=== PATIENT | male | born 1960 | race Caucasian/White ===

== ENCOUNTER 2016-11-06 14:39 | Inpatient (IN) | payer MEDICARE, MEDICAID ==
[~2016-11-06] VITALS: Ht 188 cm; Wt 78.0 kg
[~2016-11-06 14:39] MED LIST: BISM525O70 PO; CYAN500T4 PO; FOLI1TAB16 PO; IPRA14.7 IH; NAPR375T3 PO; THIA100T13 PO
[2016-11-06 15:33] LABS: BASOPHILS % (AUTO) 0.5 % (0.0-2.0); EOSINOPHILS # (AUTO) 0.1 /CMM (0.0-0.7); EOSINOPHILS % (AUTO) 1.5 % (0.0-6.0); HEMATOCRIT 45 % (39-51); HEMOGLOBIN 15.3 g/dL (13.5-17.5); LYMPHOCYTES # (AUTO) 1.4 /CMM (0.8-4.8); LYMPHOCYTES % (AUTO) 16.8 % (20.0-44.0); MEAN CORPUSCULAR HEMOGLOBIN 30 PG (26.0-33.0); MEAN CORPUSCULAR HGB CONC 34 g/dl (31.0-36.0); MEAN CORPUSCULAR VOLUME 87 fL (80-96); MONOCYTES # (AUTO) 0.5 /CMM (0.1-1.30); MONOCYTES % (AUTO) 6.1 % (2.0-12.0); NEUTROPHILS # (AUTO) 6.2 /CMM (1.8-8.9); NEUTROPHILS % (AUTO) 75.1 % (43.0-81.0); PLATELET COUNT (AUTO) 244 /CMM (150-450); RDW COEFFICIENT OF VARIATION 13.2 (11.5-15.0); RED BLOOD CELL COUNT(AUTO) 5.15 MIL/uL (4.5-6.0); WHITE BLOOD COUNT (AUTO) 8.3 K/uL (4.3-11.0)
[2016-11-06 15:47] LABS: CALCIUM, SERUM 8.7 mg/dL (8.5-10.1); CARBON DIOXIDE 26 mmol/L (21-32); CHLORIDE 101 mmol/L (98-107); CREATININE 1.1 mg/dL (0.6-1.3); GLUCOSE 115 mg/dL (74-106); POTASSIUM 4.5 mmol/L (3.5-5.1); SODIUM SERUM 136 mmol/L (136-145); UREA NITROGEN, BLOOD 17 mg/dL (7-18)
[2016-11-06 15:54] LABS: ALANINE AMINOTRANSFERASE 96 U/L (12-78); ALBUMIN 3.7 g/dL (3.4-5.0); ALCOHOL, BLOOD < 3 mg/dL (0-0); ALKALINE PHOSPHATASE 102 U/L (46-116); ASPARTATE AMINOTRANSFERASE 47 U/L (15-37); BILIRUBIN,DIRECT 0.1 mg/dL (0.0-0.2); BILIRUBIN,TOTAL 0.4 mg/dL (0.2-1.0); SALICYLATE 3.3 mg/dL (2.8-20.0); TOTAL PROTEIN, SERUM 7.4 g/dL (6.4-8.2)
[2016-11-06 15:55] LABS: ACETAMINOPHEN 0 ug/ml (10-30)
--- NOTE | 2016-11-06 16:29 | NUR ---
CALLED ART VACUUM CLEANER MECHANIC AND HE IS ON THE WAY. ETA 1 HOUR
[2016-11-06] MEDS ORDERED: KETOROLAC TROMETHAMINE INJ 60 MG/2 ML VIAL IM ONE ×2 (16:30→16:50)
[2016-11-06 17:33] LABS: APPEARANCE,URINE SL CLOUDY (CLEAR); BILIRUBIN,URINE NEGATIVE (NEGATIVE); BLOOD, URINE TRACE-INTA Ery/uL (NEGATIVE); COLOR,URINE YELLOW (YELLOW); KETONES,URINE NEGATIVE (NEGATIVE); LEUKOCYTE ESTERASE ,URINE NEGATIVE (NEGATIVE); NITRITE, URINE NEGATIVE (NEGATIVE); PROTEIN,URINE NEGATIVE (NEGATIVE); UGLUCOSE NEGATIVE (NEGATIVE); UROBILINOGEN,URINE 0.2 EU/dL (0.2)
[2016-11-06 17:48] LABS: BACTERIA,URINE None seen /HPF (None Seen); RBC,URINE 0-2 /HPF (0-2); SQUAMOUS EPITHELIAL CELL,UR None Seen /HPF (None Seen); WBC,URINE 0-2 /HPF (0-3)
--- NOTE | 2016-11-06 18:52 | NUR ---
REPORT GIVEN TO SAUD SALDAÑA FOR CONTINUITY OF CARE
[2016-11-06] MEDS ORDERED: MAGNESIUM HYDROXIDE 30 ML UDC PO PRN (20:00)
[2016-11-06] MEDS ORDERED: MAG HYDROX/AL HYDROX/SIMETH 30 ML UDC PO PRN (20:00)
[2016-11-06] MEDS ORDERED: LORAZEPAM 0.5 MG TABLET PO PRN (20:00)
[2016-11-06] MEDS ORDERED: ACETAMINOPHEN 325 MG TABLET PO PRN (20:00)
--- NOTE | 2016-11-06 20:00 | NUR ---
GPS RN ADMITTING NOTES: ADMITTED A 56YO MALE FROM [facility] ON 5150 HOLD FOR DTS. PER HOLD THE PATIENT IS ANXIOUS , DEPRESSED AND SUICIDAL WITH A PLAN TO RUN IN FRONT OF A TRUCK, PATIENT STATED THAT HIS PARENTS 2 YEARS AGO AND NOW HE WANTS TO END HIS LIFE. UPON FACE TO FACE ASSESSMENT, PATIENT IS ALERT AND ORIENTED X4, ABLE TO STATE THE REASON FOR BEING ADMITTED IN THE PSYCH UNIT. PATIENT APPEARS UNKEMPT,IN UNTIDY CLOTHING, SEXUALLY INAPPROPRIATE AT TIMES. AT THE DINING ROOM,PATIENT SIGNED ADMISSION PAPERS, WHILE HE WAS SIGNING THE PAPERS, HE MADE A COMMENT TO THE DRY CLEANER APPRENTICE, "WHEN ARE WE GETTING ?" DRY CLEANER APPRENTICE THEN STOPPED THE PATIENT WITH HIS COMMENTS, SET LIMITS AND REDIRECTED THE PATIENT BACK TO THE ROOM. AT THE PATIENT'S ROOM, HE WAS MADE TO STRIP OFF HIS CLOTHES AND DID SKIN AND BODY ASSESSMENT, WITH THE ASSISTANCE OF DONNIE BIRCH.PATIENT HAS NO OPEN WOUNDS, CUTS OR BRUISES THIS TIME OF CHECK. PICTURE ON THE LEFT ANKLE WITH THE GPS BRACELET TAKEN AND PLACED IN THE CHARD. CHARGING OF THE GPS ANKLE BRACELET DONE NEAR THE NURSES STATION WHERE THE PATIENT WAS IN CLOSE EYE SUPERVISION. PATIENT THEN ALLOWED TO HAVE SHOWER AND PUT ON A CLEAN GOWN. BELONGINGS AND CONTRABAND WERE CHECKED BY DAY SHIFT MOTORCYCLE SALES ASSOCIATE'S. Q15 MIN CHECKS INITIATED. ORIENTATION TO UNIT AND STAFF DONE. CARE PLAN SPECIFIC FOR PATIENT INITIATED. PER REPORT, PATIENT IS A REGISTERED SEX OFFENDER. PATIENT'S HEALTH CARE TECHNICIAN IS Shelby LONGORIA OFFICE NUMBER [phone] HERNANDES INFORMED OF THE PATIENTS ADMISSION. PATIENT HAS NO MEDICATIONS FOR RECONCILIATION ON FILE. WILL MONITOR PATIENT FOR MOOD, SAFETY AND BEHAVIOR. WILL ENDORSE PATIENT TO DAY SHIFT NURSE.
[2016-11-06 20:16] VITALS: BP 99/62
--- NOTE | 2016-11-06 21:05 | NUR ---
GPS RN: FEMALE PATIENT REPORTED THAT THIS SAID PATIENT IS ASKING HER " CAN YOU GIVE ME A KISS?, CAN YOU GIVE ME A KISS?" PATIENT THEN REDIRECTED BY FURNITURE SHAMPOOER BACK TO HIS ROOM. PATIENT ON CLOSE MONITORING BY RN AND FURNITURE SHAMPOOER ON DUTY.
[2016-11-07 07:03] LABS: CREATININE 0.8 mg/dL (0.6-1.3)
[2016-11-07 08:00] VITALS: BP 129/65
[2016-11-07] MEDS: DULOXETINE HCL 30 MG CAPSULE.DR PO SCH (13:30)
[2016-11-07 16:00] VITALS: BP 117/66
--- NOTE | 2016-11-07 16:13 | NUR ---
RN-CO: Patient is following female staff, starring at their back, going from room to rooms asking "when are we getting ?" Calling charge nurse "Nilda." Another patient reported that he asked her if he can kissed her. 1:[address] Pink.
--- NOTE | 2016-11-07 19:20 | NUR ---
GPS/RN NOTE: PATIENT AMBULATING WITH HIS 1:1 SITTER. PATIENT GREETED HIS RN NEAR N. STATION, " HOW ARE YOU?". AND ANOTHER TIME AT THE DINING AREA, " HOW ARE YOU?" RN RESPONDED.
[2016-11-07 19:44] VITALS: BP 123/77
[2016-11-08] MEDS: TEMAZEPAM 7.5 MG CAPSULE PO PRN ×2 (00:37→22:00)
--- NOTE | 2016-11-08 00:37 | NUR ---
GPS/RN NOTE: PATIENT C/O INSOMNIA, TEMAZEPAM 7.5 MG CAP 1 PO GIVEN.
[2016-11-08 08:00] VITALS: BP 119/75
[2016-11-08] MEDS: DULOXETINE HCL 30 MG CAPSULE.DR PO SCH (08:22)
--- NOTE | 2016-11-08 13:33 | NUR ---
Per patient, he resides in a house with a friend Ron Romero. [facility] [address]. . Patient does not plan to continue living at the current address. Patient will need placement. trail construction worker attempted to contact patient's friend Nain Guerrero ([phone]) However, someone answered and stated that it was the wrong number. trail construction worker will help form a safe and proper discharge. trail construction worker will provide patient with referrals for substance abuse and referrals for smoking cessation upon discharge.
[2016-11-08 16:00] VITALS: BP 101/58
[2016-11-08 19:52] VITALS: BP 112/66
[2016-11-08] MEDS: QUETIAPINE FUMARATE 100 MG TABLET PO SCH (21:05)
[2016-11-09 08:00] VITALS: BP 104/66
[2016-11-09] MEDS: NICOTINE PATCH (21MG) 21 MG PATCH.TD24 TD SCH (08:37)
[2016-11-09] MEDS: DULOXETINE HCL 30 MG CAPSULE.DR PO SCH (08:37)
--- NOTE | 2016-11-09 09:15 | NUR ---
pipe production worker faxed initial review packet to [facility] (phone: [phone]/ ) [address] [place] [place] [address]. pipe production worker will follow-up.
--- NOTE | 2016-11-09 12:41 | NUR ---
hand bindery assembly worker faxed initial review packet to [facility] (phone: [phone]/ ) [address] [facility] [address]. hand bindery assembly worker will follow-up.
[2016-11-09 16:00] VITALS: BP 102/61
[2016-11-09 20:00] VITALS: BP 112/69
[2016-11-09] MEDS: QUETIAPINE FUMARATE 100 MG TABLET PO SCH (21:24)
[2016-11-09] MEDS: TEMAZEPAM 7.5 MG CAPSULE PO PRN (22:33)
[2016-11-10 08:00] VITALS: BP 102/65
[2016-11-10 08:50] VITALS: BP 102/65
[2016-11-10] MEDS: DULOXETINE HCL 30 MG CAPSULE.DR PO SCH (08:57)
[2016-11-10] MEDS: NICOTINE PATCH (21MG) 21 MG PATCH.TD24 TD SCH (08:57)
[2016-11-10 15:43] VITALS: BP 112/77
--- NOTE | 2016-11-10 15:43 | NUR ---
fish house worker spoke to Nelly from admissions at [facility] (phone: [phone]/ ) [address] [facility] [address], who stated that they could not accept the patient at this time as they have no bed availability.
[2016-11-10 20:00] VITALS: BP 116/69
[2016-11-10] MEDS: QUETIAPINE FUMARATE 100 MG TABLET PO SCH (21:11)
[2016-11-10] MEDS: TEMAZEPAM 7.5 MG CAPSULE PO PRN (22:09)
[2016-11-11 08:22] VITALS: BP 100/60
[2016-11-11] MEDS: DULOXETINE HCL 30 MG CAPSULE.DR PO SCH (09:09)
[2016-11-11] MEDS: NICOTINE PATCH (21MG) 21 MG PATCH.TD24 TD SCH (09:11)
[2016-11-11 16:08] VITALS: BP 149/67
[2016-11-11 20:00] VITALS: BP 111/67
[2016-11-11] MEDS: QUETIAPINE FUMARATE 100 MG TABLET PO SCH (22:51)
[2016-11-12 08:03] LABS: ALBUMIN 3.9 g/dL (3.4-5.0); BILIRUBIN,DIRECT 0.1 mg/dL (0.0-0.2); BILIRUBIN,TOTAL 0.7 mg/dL (0.2-1.0); TOTAL PROTEIN, SERUM 7.9 g/dL (6.4-8.2)
[2016-11-12 08:05] VITALS: BP 99/69
[2016-11-12] MEDS: DULOXETINE HCL 30 MG CAPSULE.DR PO SCH (08:35)
[2016-11-12] MEDS: NICOTINE PATCH (21MG) 21 MG PATCH.TD24 TD SCH (08:35)
[2016-11-12 16:03] VITALS: BP 99/68
[2016-11-12] MEDS ORDERED: HYDROCODONE/APAP 5/325MG 1 EACH TABLET ONE (19:25)
--- NOTE | 2016-11-12 19:30 | NUR ---
GPS RN NOTE, RECEIVED PATIENT AWAKE AND IN BED, PATIENT HAS A COMPLAINT OF LOWER BACK PAIN AT 6 OUT 10 ON THE PAIN SCALE. PATIENT IS BEING TREATED WITH ORAL PAIN MEDICATION FOR THIS PAIN. PATIENT HAS A ONE TO ONE SITTER FOR BEING SEXUALLY INAPPROPRIATE. PATIENT BREATHING IS UNLABORED WITH EQUAL RISE AND FALL OF THE CHEST. PATIENT IS ALERT AND ORIENTED X 3 ON ROOM AIR WITH A SPO2 98%. PATIENT COMPLAINT WITH MEDICATION, ANXIOUS, COOPERATIVE, CONFUSED AT TIMES, AND NEEDS REORIENTATION. PATIENT DENIES SUICIDE AND HOMICIDAL IDEATIONS AT THIS TIME. PATIENT ASSISTED WITH TURNING AND REPOSITIONING Q2HR AND PRN FOR COMFORT AND CIRCULATION. PATIENT HAS NO NEEDS AT THIS TIME. PATIENT EDUCATED ON THE USE OF THE CALL PADGETT. PATIENT BED SIDE RAILS UP X2 FOR SAFETY, BED IS LOCKED AND LOW WILL CONTINUE TO MONITOR AND MAINTAIN SAFETY.
[2016-11-12] MEDS: HYDROCODONE/APAP 5/325MG 1 EACH TABLET PO PRN (19:32)
--- NOTE | 2016-11-12 19:32 | NUR ---
GPS RN NOTE, PATIENT HAS A COMPLAINT OF LOWER BACK PAIN AT 7 OUT 10 PAIN ON THE PAIN SCALE AND WOULD LIKE MEDICATION AT THIS TIME. PAGED [facility] AND INFORMED DR BYRON POTTER OF MY FINDINGS. DR POTTER ORDERED TO GIVE NORCO 5-325 1 TAB PO Q4HR PRN. ALL ORDERS NOTED AND CARRIED OUT. PATIENT VITAL SIGNS ARE STABLE. GAVE NORCO 5-325 1 TAB PO Q4HR PRN ORDERED. WILL REASSESS PAIN AND I WILL CONTINUE TO MONITOR THIS PATIENT.
[2016-11-12 20:00] VITALS: BP 128/76
[2016-11-12] MEDS: QUETIAPINE FUMARATE 100 MG TABLET PO SCH (21:40)
[2016-11-13 08:00] VITALS: BP 104/63
[2016-11-13] MEDS: DULOXETINE HCL 30 MG CAPSULE.DR PO SCH (08:49)
[2016-11-13] MEDS: NICOTINE PATCH (21MG) 21 MG PATCH.TD24 TD SCH (08:49)
[2016-11-13] MEDS: HYDROCODONE/APAP 5/325MG 1 EACH TABLET PO PRN ×2 (11:51→18:15)
--- NOTE | 2016-11-13 11:51 | NUR ---
ADMINISTERED NARCO 5/325 MG PO PRN FOR CHRONIC LOWER BACK PAIN 02/20, PER PATIENT REQUEST. V/S TAKEN BP -110/69, P-65, CONTINUED MONITORING, ENCOURAGED TO INCREASE FLUID INTAKE.
--- NOTE | 2016-11-13 15:57 | NUR ---
Patient's customer service security officer Shelby Perez [facility] ([phone] ext. 1600/ ) came to see the patient today at 10:30am. stock worker and deliverer was able to speak to the officer regarding placement, the officer stated that patient has a place to live [address] [place] [address]. assault amphibious vehicle officer Chris gave public health social worker the contact number for the manger of the house Jarod Gonzalez ([phone]) and stated that more than likely patient can return to the aforementioned address. assault amphibious vehicle officer Chris requested to be contacted when patient is discharged. stock worker and deliverer attempted to contact Jarod Gonzalez ([phone]) to confirm if patient can return to the aforementioned address. However, he was unavailable, public health social worker left him a message with her contact information and will attempt again later.
[2016-11-13 16:00] VITALS: BP 129/84
--- NOTE | 2016-11-13 16:06 | NUR ---
tnt powder worker spoke to Moustapha from [facility] [address] [place] [address] ([phone]) and [facility] [address] [place] [address] ([phone]) who stated that they would not accept the patient due to his criminal record and the fact that he has an ankle monitor.
--- NOTE | 2016-11-13 18:15 | NUR ---
ADMINISTERED NARCO 5/325 MG PO PRN FOR LOWER BACK PAIN 01/21, PER PATIENT REQUEST. V/S TAKEN BP-129//84, P-100, CONTINUED MONITORING.
[2016-11-13 19:30] VITALS: BP 115/73
[2016-11-13 21:00] VITALS: BP 120/73
[2016-11-13] MEDS: QUETIAPINE FUMARATE 100 MG TABLET PO SCH (21:39)
--- NOTE | 2016-11-14 06:35 | NUR ---
RN GPS NOTES PT. , DENIES SI HI AT THIS TIME NO ACUTE DISTRESS NOTED, ATTENDED ALL NEEDS ANTICIPATED ENDORSE TO NEXT SHIFT FOR CONTINUITY OF CARE .
--- NOTE | 2016-11-14 07:45 | NUR ---
RN-CO: Patient c/o back pain 11/20, [place] given.
[2016-11-14] MEDS: DULOXETINE HCL 30 MG CAPSULE.DR PO SCH (07:46)
[2016-11-14] MEDS: HYDROCODONE/APAP 5/325MG 1 EACH TABLET PO PRN ×4 (07:46→21:53)
[2016-11-14] MEDS: NICOTINE PATCH (21MG) 21 MG PATCH.TD24 TD SCH (07:46)
[2016-11-14 08:00] VITALS: BP 104/67
--- NOTE | 2016-11-14 12:21 | NUR ---
RN-CO: Patient asked for [place] for back pain 12/21.
[2016-11-14 16:00] VITALS: BP 115/62
--- NOTE | 2016-11-14 16:45 | NUR ---
ADMINISTERED NARCO 5/325 MG PO PRN FOR LOWER BACK PAIN 11/20, PER PATIENT REQUEST, V/S TAKEN BP-115,71, P-69, CONTINUED MONITORING, ENCOURAGED TO INCREASE FLUID INTAKE.
[2016-11-14] MEDS: LIDOCAINE 5% (PATCH) 1 EA PATCH TP SCH (19:03)
--- NOTE | 2016-11-14 19:15 | NUR ---
GPS/RN NOTE: PATIENT FOUND SITTING AT THE DINING AREA WITH OTHER PATIENTS. NO ACUTE DSITRESS NOTED.
[2016-11-14 20:44] VITALS: BP 109/63
[2016-11-14] MEDS: QUETIAPINE FUMARATE 100 MG TABLET PO SCH (21:10)
--- NOTE | 2016-11-14 22:03 | NUR ---
GPS/RN NOTE: C/O BACK PAIN NORCO TAB PO 5/325 MG GIVEN.
[2016-11-15 06:48] LABS: BASOPHILS % (AUTO) 0.4 % (0.0-2.0); EOSINOPHILS # (AUTO) 0.2 /CMM (0.0-0.7); EOSINOPHILS % (AUTO) 2.8 % (0.0-6.0); HEMATOCRIT 44 % (39-51); HEMOGLOBIN 14.6 g/dL (13.5-17.5); LYMPHOCYTES # (AUTO) 1.8 /CMM (0.8-4.8); LYMPHOCYTES % (AUTO) 29.2 % (20.0-44.0); MEAN CORPUSCULAR HEMOGLOBIN 30 PG (26.0-33.0); MEAN CORPUSCULAR HGB CONC 34 g/dl (31.0-36.0); MEAN CORPUSCULAR VOLUME 89 fL (80-96); MONOCYTES # (AUTO) 0.6 /CMM (0.1-1.30); NEUTROPHILS # (AUTO) 3.7 /CMM (1.8-8.9); NEUTROPHILS % (AUTO) 58.6 % (43.0-81.0); PLATELET COUNT (AUTO) 176 /CMM (150-450); RDW COEFFICIENT OF VARIATION 13.3 (11.5-15.0); RED BLOOD CELL COUNT(AUTO) 4.91 MIL/uL (4.5-6.0); WHITE BLOOD COUNT (AUTO) 6.3 K/uL (4.3-11.0)
[2016-11-15 06:57] LABS: ALBUMIN 3.4 g/dL (3.4-5.0); BILIRUBIN,DIRECT 0.1 mg/dL (0.0-0.2); BILIRUBIN,TOTAL 0.5 mg/dL (0.2-1.0); CALCIUM, SERUM 8.6 mg/dL (8.5-10.1); CREATININE 0.7 mg/dL (0.6-1.3); POTASSIUM 4.2 mmol/L (3.5-5.1); TOTAL PROTEIN, SERUM 6.8 g/dL (6.4-8.2)
[2016-11-15 08:00] VITALS: BP 122/73
[2016-11-15] MEDS: NICOTINE PATCH (21MG) 21 MG PATCH.TD24 TD SCH (09:13)
[2016-11-15] MEDS: HYDROCODONE/APAP 5/325MG 1 EACH TABLET PO PRN ×3 (09:13→22:08)
[2016-11-15] MEDS: DULOXETINE HCL 30 MG CAPSULE.DR PO SCH (09:13)
--- NOTE | 2016-11-15 09:13 | NUR ---
RN NOTES PATIENT STATED "I HAVE BODY PAIN". NORCO 1 TAB GIVEN ORDERED PS=02/20. WILL CONTINUE TO MONITOR FOR PAIN.
--- NOTE | 2016-11-15 15:09 | NUR ---
cotton farmworker attempted to contact patient's chief mechanical officer Leo Perez from the [facility] ([phone] ext. 1600/ ) to discuss patient's placement. However, he was unavailable, social media senior associate left him a message with her contact information. cotton farmworker will follow-up.
--- NOTE | 2016-11-15 15:42 | NUR ---
Per combatant diver officer Leo Perez ([phone] ext. 1600/ ) patient is to be discharged to the Sober living located at [address] [place] [address]. Per combatant diver officer Leo Perez patient can be sent via taxi to the aforementioned address and he would follow-up with patient at the sober living facility.
[2016-11-15 16:00] VITALS: BP 113/71
[2016-11-15] MEDS: LIDOCAINE 5% (PATCH) 1 EA PATCH TP SCH (17:42)
[2016-11-15 20:03] VITALS: BP 138/77
[2016-11-15] MEDS ORDERED: QUETIAPINE FUMARATE 100 MG TABLET PO SCH (22:00)
--- NOTE | 2016-11-15 22:10 | NUR ---
RN NOTES PATIENT STATED "I HAVE MODE PAIN". NORCO 5/325 1 TAB PO PRN GIVEN ORDERED PS=12/21. WILL CONTINUE TO MONITOR FOR PAIN.
--- NOTE | 2016-11-16 06:46 | NUR ---
RN GPS NOTES PT. , DENIES SI HI AT THIS TIME NO ACUTE DISTRESS NOTED, ATTENDED ALL NEEDS ANTICIPATED ,, REMAINED 1:1 SITTER AT BED SIDE FOR SAFETY, ENDORSE TO NEXT SHIFT FOR CONTINUITY OF CARE .
[2016-11-16 08:11] VITALS: BP 129/70
[2016-11-16] MEDS: NICOTINE PATCH (21MG) 21 MG PATCH.TD24 TD SCH (08:28)
[2016-11-16] MEDS: DULOXETINE HCL 30 MG CAPSULE.DR PO SCH (08:28)
[2016-11-16] MEDS: HYDROCODONE/APAP 5/325MG 1 EACH TABLET PO PRN (08:31)
--- NOTE | 2016-11-16 13:05 | NUR ---
GPS RN: PATIENT'S HOLD DISCONTINUED AND PATIENT DISCHARGED TO [facility] [place] [address] [address] [facility] [address], [[phone]] VIA TAXI. PER , PATIENT'S DENTAL NURSE Shelby LONGORIA [[phone]] HAS BEEN NOTIFIED. PATIENT'S CONDITION IS STABLE FOR DISCHARGE, VS STABLE, PATIENT DENIES SI AT THE TIME OF DISCHARGE. ALL BELONGINGS RETURNED TO THE PATIENT. PATIENT REFUSED TO SIGN THE PAPERWORK AND DISCHARGE PHOTOS. PATIENT PROVIDED WITH EDUCATIONAL EXIT CARE AND PRESCRIPTION. PATIENT PROVIDED WITH THE TAXI VOUCHER, LEFT THE UNIT ACCOMPANIED BY STAFF.
--- NOTE | 2016-11-16 14:15 | NUR ---
Discharge Note: Patient was discharged to a Sober Living Facility located at [address] [place] [address]. Via Taxi. Patients building drafting officer Leo Perez ([phone] ext. 1600/ ) was notified. Patient and patient's building drafting officer were agreeable with the discharge plan. Patient's mood and affect were calm and cooperative upon discharge. Patient denied suicidal and homicidal ideations. Patient was provided with a referral to the [facility] [address], [place] [address] ([phone]). Patient was also provided with a referral to the [facility] program for substance abuse [address] [place] [address] ([phone]) there intake assessments are done Sunday through Sunday at 8:00am. Patient also received a referral for smoking cessation to [address] [facility] [address] meetings are held Sunday 6:30Pm small room. Facilitated info to IDT team who are in agreement with discharge arrangement. The multidisciplinary exitcare form was done, printed, signed, and given to the patient.
== END 2016-11-16 13:05 | disposition home or self-care (01) | DRG 885 ==
LOC: ER 14:43 → GPS 18:43
PROVIDERS: ADMIT Psychiatry & Neurology Psychiatry; ATTEND Internal Medicine
DX: F33.3 Major depressive disorder, recurrent, severe with psychotic symptoms (principal); R45.851 Suicidal ideations; E11.9 Type 2 diabetes mellitus without complications; G89.29 Other chronic pain; M19.90 Unspecified osteoarthritis, unspecified site; Z92.21 Personal history of antineoplastic chemotherapy; Z85.72 Personal history of non-Hodgkin lymphomas; R74.0 Nonspecific elevation of levels of transaminase and lactic acid dehydrogenase [LDH]; F29 Unspecified psychosis not due to a substance or known physiological condition; Z59.0 Homelessness; F10.10 Alcohol abuse, uncomplicated
CPT/HCPCS: 36415; 80048-TC; 80061-TC; 80076-TC; 80305; 81000-TC; 82565-TC; 85025-TC; 87081-TC; G0480; J1885

== ENCOUNTER 2019-09-10 17:17 | Inpatient (IN) | payer MEDICARE, OTHER ==
[~2019-09-10] VITALS: Ht 177.8 cm; Wt 74.8 kg
--- NOTE | 2019-09-10 17:40 | NUR ---
MIGUEL ON 5150 HOLD FROM HOME. TO ER BED 11. AAOX4. NOT IN RESP DISTRESS. AMBULATORY. BROUGHT IN FOR SUICIDAL IDEATION W/ PLAN JUMP INFRONT OF A MOVING TRUCK. PT DENIES HI. DENIES AUDITORY AND VISUAL HALLUCINATION. PT IS STRIPPED OFF CLOTHING, GOWNED AND BELONGINGS PLACED IN LOCKER LOCATED IN THE UTILITY ROOM. 1:1 SITTER AT BEDSIDE. KELLY BLOOD AT BEDSIDE FOR EVAL. WILL CONTINUE TO MONITOR PT.
[2019-09-10 17:46] LABS: APPEARANCE,URINE Clear (CLEAR); BILIRUBIN,URINE Negative (NEGATIVE); BLOOD, URINE Negative Ery/uL (NEGATIVE); COLOR,URINE Yellow (YELLOW); KETONES,URINE Negative (NEGATIVE); LEUKOCYTE ESTERASE ,URINE Negative (NEGATIVE); NITRITE, URINE Negative (NEGATIVE); PH,URINE 5.5 (5.0-8.0); PROTEIN,URINE Negative (NEGATIVE); UGLUCOSE Negative (NEGATIVE); UROBILINOGEN,URINE 0.2 EU/dL (0.2)
[2019-09-10 17:47] LABS: BASOPHILS % (AUTO) 0.5 % (0.0-2.0); EOSINOPHILS % (AUTO) 1.2 % (0.0-6.0); HEMATOCRIT 43 % (39-51); HEMOGLOBIN 14.2 g/dL (13.5-17.5); LYMPHOCYTES # (AUTO) 1.2 /CMM (0.8-4.8); LYMPHOCYTES % (AUTO) 15.3 % (20.0-44.0); MEAN CORPUSCULAR HGB CONC 33 g/dl (31.0-36.0); MEAN CORPUSCULAR VOLUME 86 fL (80-96); MONOCYTES # (AUTO) 0.7 /CMM (0.1-1.30); MONOCYTES % (AUTO) 9.2 % (2.0-12.0); NEUTROPHILS # (AUTO) 5.8 /CMM (1.8-8.9); NEUTROPHILS % (AUTO) 73.8 % (43.0-81.0); PLATELET COUNT (AUTO) 224 /CMM (150-450); RED BLOOD CELL COUNT(AUTO) 5.03 MIL/uL (4.5-6.0); WHITE BLOOD COUNT (AUTO) 7.9 K/uL (4.3-11.0)
--- NOTE | 2019-09-10 17:50 | NUR ---
ER PHLEB AT BEDSIDE FOR BLOOD DRAW.
[2019-09-10 17:54] LABS: CALCIUM, SERUM 8.6 mg/dL (8.5-10.1); CARBON DIOXIDE 29 mmol/L (21-32); CHLORIDE 100 mmol/L (98-107); GLUCOSE 101 mg/dL (74-106); POTASSIUM 4.1 mmol/L (3.5-5.1); SODIUM SERUM 134 mmol/L (136-145); UREA NITROGEN, BLOOD 17 mg/dL (7-18)
[2019-09-10] MEDS ORDERED: IV NS 0.9% 1,000 ML BAG IV ONE (18:00)
[2019-09-10 18:07] LABS: ALANINE AMINOTRANSFERASE 65 U/L (12-78); ALBUMIN 3.8 g/dL (3.4-5.0); ALCOHOL, BLOOD < 3 mg/dL (0-0); ALKALINE PHOSPHATASE 95 U/L (46-116); ASPARTATE AMINOTRANSFERASE 46 U/L (15-37); BILIRUBIN,DIRECT 0.2 mg/dL (0.0-0.2); BILIRUBIN,TOTAL 0.7 mg/dL (0.2-1.0); SALICYLATE 2.9 mg/dL (2.8-20.0); TOTAL PROTEIN, SERUM 7.5 g/dL (6.4-8.2)
[2019-09-10 18:08] LABS: ACETAMINOPHEN 0 ug/ml (10-30)
[2019-09-10] MEDS ORDERED: MELO-105 PO (18:47)
[2019-09-10] MEDS ORDERED: OLAN5TAB3 PO (18:47)
[2019-09-10] MEDS ORDERED: DIVA500T54 PO (18:47)
[2019-09-10] MEDS ORDERED: RIVA10TA PO (18:47)
--- NOTE | 2019-09-10 18:53 | NUR ---
CALLED PINKY FOR EVRENNY.
--- NOTE | 2019-09-10 19:13 | NUR ---
REPORT GIVEN TO PIOTR BIRCH FOR CASE.
--- NOTE | 2019-09-10 19:26 | NUR ---
PINKY AT BEDSIDE.
--- NOTE | 2019-09-10 19:52 | NUR ---
REPORT GIVEN TO YADIRA SALDAÑA FOR CASE.
[2019-09-10] MEDS ORDERED: TEMAZEPAM 7.5 MG CAPSULE PO PRN (20:30)
[2019-09-10] MEDS ORDERED: MAG HYDROX/AL HYDROX/SIMETH 30 ML UDC PO PRN (20:30)
[2019-09-10] MEDS ORDERED: MAGNESIUM HYDROXIDE 30 ML UDC PO PRN ×2 (20:30→21:00)
[2019-09-10] MEDS ORDERED: ACETAMINOPHEN 325 MG TABLET PO PRN (20:30)
--- NOTE | 2019-09-10 20:30 | NUR ---
GPS ADMISSION NOTE: RECEIVED PT. FROM ER AND IS HOMELESS. ARRIVED ON THIS UNIT @ 2017 VIA WHEELCHAIR WITH 1 EMT ESCORT. PT. ADMITTED ON A 5150 HOLD FOR DTS. PER HOLD PT. CALLED 911 BECAUSE HE WANTED TO KILL HIMSELF BY JUMPING IN FRONT OF A TRUCK. HE SAID HE IS DEPRESSED DUE TO THE OF HIS PARENTS WHO WERE HIS PRIMARY CAREGIVERS. THE 5150 WAS REVIEWED AND THE DOCUMENTATION IN THE 5150 HOLD APPEARS TO REFLECT THE PRESENTATION OF THE PATIENT. PATIENT IS CURRENTLY SLEEPING IN BED. NO S/S OF SOB OR ACUTE DISTRESS. BREATHING IS UNLABORED WITH EQUAL RISE AND FALL OF CHEST. PT. IS ALERT, ORIENTED X2-3 ON ROOM AIR. PT. REFUSED TO SIGN ANY PAPERWORK AND IS ADVISED OF HIS HOLD. PT. IS UNDER THE PSYCHIATRIC CARE OF DR. HERNANDES AND MEDICAL CARE OF DR. ALCANTAR. PT. BELONGINGS WERE INVENTORIED AND CHECKED FOR CONTRABAND. PT. SKIN ASSESSMENT COMPLETED. PT. ORIENTED IN ROOM. FLOOR,STAFF WITH ALL QUESTIONS ANSWERED. PT. EDUCATED ON USE OF CALL PADGETT. PT. SIDE RAILS UP X2 FOR SAFETY, BED LOCKED, LOW AND WILL CONTINUE TO MONITOR THIS PT. FOR SAFETY AND BEHAVIOR WITH HELP OF STAFF.
[2019-09-10 20:32] VITALS: BP 153/66
[2019-09-10] MEDS ORDERED: BLOOD SUGAR DIAGNOSTIC 1 EACH STRIP IN ONE (22:00)
[2019-09-11 00:06] VITALS: BP 153/66
[2019-09-11 08:00] VITALS: BP 112/71
--- NOTE | 2019-09-11 08:00 | NUR ---
GPS ADMISSION NOTE: RECEIVED PT.AWAKE AND KEEPS WALKING ALONG THE HALLWAY OFTEN WITH UNSTEADY GAIT AND MONITORED FOR SAFETY.NO S/S OF SOB OR ACUTE DISTRESS. PLEASANT WITH STAFF AND COMPLIANT WITH MEDS AND TX. BREATHING IS UNLABORED WITH EQUAL RISE AND FALL OF CHEST. PT. IS ALERT, ORIENTED X2-3 ON ROOM AIR. NO SI/HI.AVH NOTED. WILL CONTINUE TO MONITOR THIS PT. FOR SAFETY AND BEHAVIOR WITH HELP OF STAFF.
[2019-09-11] MEDS: NICOTINE PATCH (14MG) 14 MG PATCH.TD24 TD SCH (08:30)
[2019-09-11] MEDS: MELOXICAM 7.5 MG TABLET PO SCH (08:30)
[2019-09-11] MEDS: RIVAROXABAN 10 MG TABLET PO SCH (08:32)
[2019-09-11] MEDS: LORAZEPAM 0.5 MG TABLET PO PRN ×2 (08:59→16:19)
[2019-09-11] MEDS ORDERED: DIVALPROEX SODIUM PO SCH (09:00)
[2019-09-11] MEDS ORDERED: OLANZAPINE 5 MG TABLET PO SCH (09:00)
[2019-09-11] MEDS: HYDROCODONE/APAP 5/325MG 1 EACH TABLET PO PRN ×2 (09:00→20:45)
--- NOTE | 2019-09-11 11:36 | NUR ---
INITIAL DISCHARGE PLAN: Pt is homeless and wishes to be discharged to a Care Home Facility. SW will help form a safe and proper discharge in collaboration with .
--- NOTE | 2019-09-11 11:37 | NUR ---
SUBSTANCE ABUSE INTERVENTION: Pt denied using drug and alcohol and refused to sign the intervention.
--- NOTE | 2019-09-11 12:08 | NUR ---
INDIVIDUAL INTERVENTION: SW attempted to meet with pt individually to discuss his marijuana use and discharge plan, pt was making inappropriate sexual comments to SW and SW excused herself from the room. At this time pt is not appropriate for individual sessions.
--- NOTE | 2019-09-11 15:56 | NUR ---
Slate Picker Contact: Pts geospatial program management officer, Officer Chris ([phone]), requested that he be contacted at the time of this pts discharge.
[2019-09-11 16:02] VITALS: BP 119/77
[2019-09-11 20:00] VITALS: BP 129/76
[2019-09-11] MEDS: MIRTAZAPINE 15 MG TABLET PO SCH (22:40)
[2019-09-12] MEDS: HYDROCODONE/APAP 5/325MG 1 EACH TABLET PO PRN ×3 (04:29→12:56)
[2019-09-12 07:20] LABS: BASOPHILS # (AUTO) 0.1 /CMM (0.0-0.2); BASOPHILS % (AUTO) 0.9 % (0.0-2.0); EOSINOPHILS % (AUTO) 2.8 % (0.0-6.0); HEMATOCRIT 42 % (39-51); HEMOGLOBIN 13.9 g/dL (13.5-17.5); LYMPHOCYTES # (AUTO) 1.5 /CMM (0.8-4.8); LYMPHOCYTES % (AUTO) 23.5 % (20.0-44.0); MEAN CORPUSCULAR HGB CONC 33 g/dl (31.0-36.0); MEAN CORPUSCULAR VOLUME 85 fL (80-96); MONOCYTES # (AUTO) 0.9 /CMM (0.1-1.30); MONOCYTES % (AUTO) 13.5 % (2.0-12.0); NEUTROPHILS # (AUTO) 3.9 /CMM (1.8-8.9); NEUTROPHILS % (AUTO) 59.3 % (43.0-81.0); PLATELET COUNT (AUTO) 184 /CMM (150-450); RED BLOOD CELL COUNT(AUTO) 4.88 MIL/uL (4.5-6.0); WHITE BLOOD COUNT (AUTO) 6.6 K/uL (4.3-11.0)
[2019-09-12 07:32] LABS: CALCIUM, SERUM 8.2 mg/dL (8.5-10.1); CREATININE 0.6 mg/dL (0.6-1.3)
--- NOTE | 2019-09-12 07:37 | NUR ---
GPS RN OPENING NOTE RECEIVED PATIENT SLEEPING IN BED WITH NO SIGNS OF DISTRESS OF PAIN. BREATHING IS EVEN AND UNLABORED WITH EQUAL RISE AND FALL OF CHEST. BED IS LOCKED IN LOW POSITION WITH 2 SIDE RAILS UP FOR SAFETY. WILL CONTINUE TO MONITOR Q15 FOR MOOD, SAFETY AND BEHAVIOR.
[2019-09-12 07:59] VITALS: BP 119/57
[2019-09-12 08:00] VITALS: BP 119/57
[2019-09-12] MEDS: MELOXICAM 7.5 MG TABLET PO SCH (08:23)
[2019-09-12] MEDS: RIVAROXABAN 10 MG TABLET PO SCH (08:29)
[2019-09-12] MEDS: NICOTINE PATCH (14MG) 14 MG PATCH.TD24 TD SCH (08:32)
--- NOTE | 2019-09-12 12:45 | NUR ---
Individual Intervention: SW attempted to meet with pt individually in the activities room to discuss his discharge plan but the pt was making inappropriate sexual comments to SW and SW excused herself from the room. At this time pt is not appropriate for individual sessions.
[2019-09-12 16:00] VITALS: BP 108/56
[2019-09-12 20:00] VITALS: BP 109/69
[2019-09-12] MEDS: MIRTAZAPINE 15 MG TABLET PO SCH (22:17)
[2019-09-13] MEDS: HYDROCODONE/APAP 5/325MG 1 EACH TABLET PO PRN ×2 (07:43→15:13)
[2019-09-13 08:00] VITALS: BP 121/76
[2019-09-13] MEDS: MELOXICAM 7.5 MG TABLET PO SCH (08:42)
[2019-09-13] MEDS: RIVAROXABAN 10 MG TABLET PO SCH (08:45)
[2019-09-13] MEDS: NICOTINE PATCH (14MG) 14 MG PATCH.TD24 TD SCH (08:51)
--- NOTE | 2019-09-13 09:00 | NUR ---
RN NOTE- PT AWAKE WALKING UNIT ASKING FOR FOOD AND COFFEE. FOCUSED ON CIGARETTES, PO INTAKE GOOD, MED COMPLIANT, NO BEHAVIORAL ISSUES THUS FAR. DENIES SI HI AH VH. MONITORING AROUND FEMALE PTS AND STAFF
[2019-09-13 16:00] VITALS: BP 120/52
[2019-09-13 20:07] VITALS: BP 101/58
[2019-09-13] MEDS: MIRTAZAPINE 15 MG TABLET PO SCH (21:34)
[2019-09-14 08:00] VITALS: BP 109/78
--- NOTE | 2019-09-14 08:00 | NUR ---
RN-CO: ATIVAN 0.5 MG PO FOR RESTLESSNESS AND FOR BEING SEXUALLY INAPPROPRIATE, " CAN I YOU, CAN I KISS YOU?"
[2019-09-14] MEDS: LORAZEPAM 0.5 MG TABLET PO PRN ×2 (08:05→14:36)
[2019-09-14] MEDS: MELOXICAM 7.5 MG TABLET PO SCH (08:05)
[2019-09-14] MEDS: NICOTINE PATCH (14MG) 14 MG PATCH.TD24 TD SCH (08:05)
[2019-09-14] MEDS: RIVAROXABAN 10 MG TABLET PO SCH (08:22)
[2019-09-14] MEDS: HYDROCODONE/APAP 5/325MG 1 EACH TABLET PO PRN ×2 (08:48→16:28)
--- NOTE | 2019-09-14 14:38 | NUR ---
RN-CO: ATIVAN 0.5 MG PO GIVEN FOR BEING LOUD AND INAPPROPRIATE TO STAFF AND PEERS. PT IS NON REDIRECTABLE.
[2019-09-14 16:00] VITALS: BP 121/69
[2019-09-14 20:00] VITALS: BP 105/72
[2019-09-14] MEDS: MIRTAZAPINE 15 MG TABLET PO SCH (21:02)
[2019-09-14 22:27] VITALS: BP 122/82
[2019-09-14] MEDS: clonazePAM 0.5 MG TABLET PO SCH (22:46)
--- NOTE | 2019-09-14 22:56 | NUR ---
GPS RN NOTES: REFUSED SACRAL ASSESSMENT PT REFUSED WEEKLY SKIN ASSESSMENT ON HIS BUTTOCKS. PT AGREED TO TAKE A PICTURE AND ASSESS HIS ELBOWS AND FEET BUT STILL REFUSED BUTTOCKS. PT STATED, " NOT LUIS ARMANDO HAPPEN LADY." EXPLAIN RISKS AND BENEFITS. PT STILL REFUSED X3. CONTINUE TO MONITOR.
[2019-09-15 08:00] VITALS: BP 120/80
[2019-09-15] MEDS: NICOTINE PATCH (14MG) 14 MG PATCH.TD24 TD SCH (08:26)
[2019-09-15] MEDS: MELOXICAM 7.5 MG TABLET PO SCH (08:26)
[2019-09-15] MEDS: RIVAROXABAN 10 MG TABLET PO SCH (08:28)
[2019-09-15] MEDS: HYDROCODONE/APAP 5/325MG 1 EACH TABLET PO PRN ×2 (08:28→12:23)
[2019-09-15] MEDS: LORAZEPAM 0.5 MG TABLET PO PRN ×2 (08:30→15:32)
[2019-09-15] MEDS: clonazePAM 0.5 MG TABLET PO SCH ×2 (09:52→22:18)
--- NOTE | 2019-09-15 12:02 | NUR ---
INDIVIDUAL INTERVENTION: FLORY attempted to provide individual therapy to pt to discuss his discharge plan. Pt is very restless, anxious, apprehensive, and pacing the hallway back and forth. Pt states he does not want to talk about his discharge right now because he continues to feel suicidal and depressed. Pt then walked away from SW and did not engage in further conversation.
--- NOTE | 2019-09-15 13:33 | NUR ---
SOFTWARE CONFIGURATION ANALYST CONTACT: FLORY received a call form pts housing management officer, Officer Chris ([phone]) requesting discharge information for pt. FLORY informed him that pt will be discharged on Sunday09/17/19 and stated that currently, SW is exploring SNF placement. FLORY stated she will inform him where pt will be discharged to once placement is confirmed.
--- NOTE | 2019-09-15 15:33 | NUR ---
RN-CO: PATIENT WAS GIVEN ATIVAN 0.5 MG FOR BEING DISRUPTIVE TO THE UNIT. PT IS NON REDIRECTABLE AND SEXUALLY INAPPROPRIATE.
[2019-09-15 16:00] VITALS: BP 107/55
[2019-09-15 20:10] VITALS: BP 118/73
[2019-09-15] MEDS: MIRTAZAPINE 15 MG TABLET PO SCH (21:01)
[2019-09-16 08:00] VITALS: BP 123/84
[2019-09-16] MEDS: MELOXICAM 7.5 MG TABLET PO SCH (08:20)
--- NOTE | 2019-09-16 08:20 | NUR ---
SNF REFERRAL: FLORY faxed SNF referral to [facility] ([facility]) [address] [facility] [address] fax: [phone] for review.
[2019-09-16] MEDS: RIVAROXABAN 10 MG TABLET PO SCH (08:23)
[2019-09-16] MEDS: NICOTINE PATCH (14MG) 14 MG PATCH.TD24 TD SCH (08:25)
--- NOTE | 2019-09-16 09:00 | NUR ---
RN NOTE- PT INAPPROPRIATE AT TIMES, CALM THIS MORNING, PO INTAKE GOOD MED COMPLIANT, DELUSIONAL MONITORING FOR BEHAVIOR
[2019-09-16] MEDS: clonazePAM 0.5 MG TABLET PO SCH ×2 (10:11→22:42)
--- NOTE | 2019-09-16 11:42 | NUR ---
SNF REFERRAL: FLORY received a call from Rachel educational resource coordinator at [facility] Address: [address] [place] [address] stating pt has been accepted to the facility. FLORY informed her pt will be discharged tomorrow Sunday09/17/19 at 1:30pm.
--- NOTE | 2019-09-16 13:23 | NUR ---
ROBOTICS SPECIALIST CONTACT: SW attempted to contact pts unemployment insurance hearing officer, Officer Chris ([phone]) to inform him of pts discharge tomorrow Sunday09/17/19. FLORY was unable to leave a voicemail due to the mailbox being full.
--- NOTE | 2019-09-16 13:26 | NUR ---
INDIVIDUAL INTERVENTION: SW met with pt to inform him of his discharge tomorrow to [facility]. Pt agreed with discharge and denied suicidal ideation.
[2019-09-16 16:00] VITALS: BP 117/69
--- NOTE | 2019-09-16 19:45 | NUR ---
GPS RN OPENING NOTE: RECEIVED PT LAYING IN BED AWAKE. PT COMING IN AND OUT OF HIS ROOM. REALITY ORIENTATION DONE. PT ALERT AND ORIENTED X2-3. PT IS ANXIOUS AT TIMES, GUARDED, BLUNT AFFECT, CONFUSED AT TIMES, COOPERATIVE, RESTLESSS, NEEDY. SLURRED SPEECH, AND EASILY AGIATED. NO S/S OF ANY DISTRESS. RESPIRATION EVEN AND UNLABORED WITH EQUAL RISE AND FALL OF THE CHEST, ON ROOM AIR. DENIES SI AT THIS TIME. SAFETY AND FALL PRECAUTION OBSERVED, BED IN LOW LOCKED POSITION, CALL PADGETT WITHIN REACH. Q15 MINUTES OBSERVATION CONTINUED. WILL CONTINUE TO MONITOR PT FOR PAIN, MOOD, SAFETY AND BEHAVIOR.
--- NOTE | 2019-09-16 20:00 | NUR ---
GPS RN NOTE: PAIN PT. C/O OF PAIN IN LOWER BACK. ADMINISTERED NORCO PO PRN ORDERED. WILL CONTINUE TO MONITOR
[2019-09-16] MEDS: HYDROCODONE/APAP 5/325MG 1 EACH TABLET PO PRN (20:04)
[2019-09-16 20:22] VITALS: BP 130/72
[2019-09-16] MEDS: MIRTAZAPINE 15 MG TABLET PO SCH (21:39)
--- NOTE | 2019-09-17 04:32 | NUR ---
GPS RN NOTE: PAIN PT. C/O OF PAIN IN LOWER BACK. ADMINISTERED NORCO PO PRN ORDERED. WILL CONTINUE TO MONITOR
[2019-09-17] MEDS: HYDROCODONE/APAP 5/325MG 1 EACH TABLET PO PRN ×2 (04:36→08:48)
[2019-09-17 08:00] VITALS: BP 103/56
[2019-09-17] MEDS: MELOXICAM 7.5 MG TABLET PO SCH (08:24)
[2019-09-17] MEDS: NICOTINE PATCH (14MG) 14 MG PATCH.TD24 TD SCH (08:26)
[2019-09-17] MEDS: RIVAROXABAN 10 MG TABLET PO SCH (08:26)
[2019-09-17] MEDS: clonazePAM 0.5 MG TABLET PO SCH (09:31)
--- NOTE | 2019-09-17 12:22 | NUR ---
Terra [place]ta Mason Contact: FLORY called the pts housing management officer, Officer Chris ([phone]), and informed him that the pt will be discharged today to [facility]. FLORY provided him with the address as well as the phone number.
--- NOTE | 2019-09-17 12:26 | NUR ---
Facility Contact: Rachel ([phone]) from [facility] called the SW and stated that she needs a COVID screening tool to be faxed to the facility before the pt can be admitted.
--- NOTE | 2019-09-17 12:26 | NUR ---
Facility Contact: FLORY faxed all of the pts vitals from his inpatient stay and a COVID screening tool form to [facility] with attn to Rachel to the fax number: [phone].
--- NOTE | 2019-09-17 14:57 | NUR ---
Discharge Note: Pt was discharged at 2:30pm via [facility] to [facility] Address: [address] [place] [address] . Pts upscale security officer, Officer Chris ([phone]), was notified about the discharge. Upon discharge, the pt appeared to be in a euthymic mood and presented with a calm affect. Pt appeared to be alert and oriented x4. Pt denied both suicidal and homicidal ideation as well as auditory and visual hallucinations. Pt is ambulatory with a steady gait. Pt was provided with a packet of homeless resources that include homeless shelters, food lynn, showers, health clinics, mental health clinics, and substance abuse referrals. Pt signed the homeless waiver and the checklist was completed. Pt will be under the care of his psychiatrist: Dr. Pink [address] [facility], [facility] [address] [place] [address]; . Pt will also be under the care of his sales intern: Dr Jacome Address: [address] [address] . This treatment team will continue to work with the pt on his substance abuse.
--- NOTE | 2019-09-17 16:00 | NUR ---
NURSING DISCHARGE NOTE: PT WAS DISCHARGED TODAY AT 1600 TO [facility] LOCATED AT [address] [place] [address] . PT'S CLOSET BUILDER, OFFICER SWATI HAS BEEN NOTIFIED. PT LEFT THE UNIT VIA GURNEY TO [facility] TRIP #[id number], ACCOMPANIED BY 2 SCREEN EXAMINER. PT IS A&OX2-3, CALM, COOPERATIVE, PLEASANT, HYPERVERBAL, REDIRECTABLE, MED COMPLIANT, DENIES SI/HI AT THE TIME OF DISCHARGE. PT WAS COOPERATIVE WITH THE DISCHARGE PROCESS AND HAS SIGNED ALL DISCHARGE PAPERWORK. PT VERBALIZED UNDERSTANDING OF DISCHARGE INSTRUCTIONS. DISCHARGE ORDER WAS GIVEN BY DR. TALBOT WITH PRESCRIPTIONS WELL. PT HAS BEEN MEDICALLY CLEARED BY DR. RIDDLE WITH ORDER TO CONTINUE ROUTINE MEDICAL MEDICATIONS. VSS. PT REFUSED SKIN ASSESSMENT AND PICTURES TO BE TAKEN. NO S/S OF ANY DISTRESS NOTED. NO C/O PAIN OR ANY DISCOMFORT. ALL BELONGINGS WERE RETURNED TO PT WELL. REPORT WAS GIVEN TO KODI MCNALLY AND PIOTR WILLIAMSON AT [phone].
== END 2019-09-17 16:00 | DRG 881 ==
LOC: ER 17:23 → GPS 19:49
PROVIDERS: ADMIT Psychiatry & Neurology Psychiatry; ATTEND Nurse Practitioner Acute Care
DX: F32.9 Major depressive disorder, single episode, unspecified (principal); E87.1 Hypo-osmolality and hyponatremia; R45.851 Suicidal ideations; J44.9 Chronic obstructive pulmonary disease, unspecified; M19.90 Unspecified osteoarthritis, unspecified site; G89.29 Other chronic pain; M54.9 Dorsalgia, unspecified; F17.210 Nicotine dependence, cigarettes, uncomplicated; Z86.19 Personal history of other infectious and parasitic diseases; Z96.659 Presence of unspecified artificial knee joint
CPT/HCPCS: 36415; 80048-TC; 80061-TC; 80076-TC; 80305; 81000-TC; 82962-TC; 85025-TC; 87081-TC; 97116-TC; 97530-TC; G0480; J7030